=== PATIENT | male | born 1935 | race Caucasian/White ===

== ENCOUNTER 2018-09-09 12:28 | Emergency (ER) | payer MEDICARE, OTHER ==
[~2018-09-09] VITALS: Ht 177.8 cm; Wt 74.8 kg
[2018-09-09] MEDS ORDERED: LEVOFLOXACIN 500 MG TAB PO ONE (13:00)
[2018-09-09] MEDS ORDERED: CLINDAMYCIN 600 MG/4 ML VL IM ONE (13:00)
[2018-09-09 13:37] LABS: Basophils # (auto) 0 uL; Basophils % (auto) 0.3 % (0.0-2.0); Eosinophils # (auto) 0.1 uL; Eosinophils % (auto) 1.8 % (0.0-7.0); Hemoglobin 14.6 g/dL (13.5-17.5); Lymphocytes # (auto) 1.7 uL; Lymphocytes % (auto) 21.9 % (10.0-50.0); Mean Corpuscular Hemoglobin 32.9 pg (28.0-32.0); Mean Corpuscular Hgb Conc. 33.1 g/dL (32.0-36.0); Mean Corpuscular Volume 99.3 fL (80.0-100.0); Monocytes # (auto) 0.9 uL; Monocytes % (auto) 11.1 % (0.0-12.0); Neutrophils # (auto) 5.1 uL; Neutrophils % (auto) 64.9 % (37.0-80.0); Nucleated Red Blood Cells % 0.1 %; Platelet Count (auto) 230 10^3/uL (140-450); Red Blood Cells 4.43 10^6/uL (4.5-5.90); Red Cell Distribution Width 13.1 % (11.8-14.3); White Blood Cell 7.8 10^3/uL (4.4-10.8)
[2018-09-09 13:52] LABS: Albumin 3.7 g/dL (3.4-5.0); BUN/Creatinine Ratio 19.3; Calcium 8.3 mg/dL (8.5-10.1); Potassium 3.8 mmol/L (3.5-5.1)
[2018-09-09 14:01] LABS: Bilirubin, Total 0.7 mg/dL (0.2-1.0); Total Protein 7.8 g/dL (6.4-8.2)
[2018-09-09] MEDS ORDERED: CLINDAMYCIN 600MG IV 50 ML IV ONE (14:15)
[2018-09-09 15:25] VITALS: BP 138/68
== END 2018-09-09 15:28 | disposition home or self-care (01) ==
LOC: ER 12:32
DX: L03.116 Cellulitis of left lower limb (principal); I10 Essential (primary) hypertension; Z88.0 Allergy status to penicillin
CPT/HCPCS: 36415; 80053; 84484; 85025; 96365; 99284; J3490; 96375

== ENCOUNTER → 2019-11-21 | Outpatient (CLI) | payer MEDICARE, OTHER | END | disposition home or self-care (01) | LOC: Rad HDHVI 10:44 | PROVIDERS: ATTEND Internal Medicine Cardiovascular Disease | DX: R07.9 Chest pain, unspecified (principal); R00.2 Palpitations; R42 Dizziness and giddiness; R53.83 Other fatigue | CPT/HCPCS: 93306 ==

== ENCOUNTER → 2019-12-02 | Outpatient (CLI) | payer MEDICARE, OTHER ==
[~2019-12-02] VITALS: Ht 177.8 cm; Wt 74.8 kg
[2019-12-02 12:06] LABS: Urine Blood Negative /uL (Negative); Urine Specific Gravity 1.016 (1.001-1.035)
[2019-12-02 12:09] LABS: Basophils # (auto) 0 uL; Eosinophils # (auto) 0.1 uL; Eosinophils % (auto) 1.5 % (0.0-7.0); Hemoglobin 15.2 g/dL (13.5-17.5); Monocytes # (auto) 0.3 uL; Neutrophils # (auto) 2.7 uL; Nucleated Red Blood Cells % 0.2 %; Red Cell Distribution Width 13.2 % (11.8-14.3)
[2019-12-02 12:12] LABS: Basophils % (auto) 0.6 % (0.0-2.0); Hematocrit 44.6 % (41.0-53.0); Lymphocytes # (auto) 1.3 uL; Lymphocytes % (auto) 29.6 % (10.0-50.0); Mean Corpuscular Hemoglobin 34.5 pg (28.0-32.0); Mean Corpuscular Hgb Conc. 34.1 g/dL (32.0-36.0); Mean Corpuscular Volume 101.2 fL (80.0-100.0); Monocytes % (auto) 6.9 % (0.0-12.0); Neutrophils % (auto) 61.4 % (37.0-80.0); Platelet Count (auto) 146 10^3/uL (140-450); Red Blood Cells 4.41 10^6/uL (4.5-5.90); White Blood Cell 4.4 10^3/uL (4.4-10.8)
[2019-12-02 12:14] LABS: Potassium 3.7 mmol/L (3.5-5.1)
[2019-12-02 12:23] LABS: Albumin 3.3 g/dL (3.4-5.0); BUN/Creatinine Ratio 20.7; Bilirubin, Total 0.9 mg/dL (0.2-1.0); Calcium 7.5 mg/dL (8.5-10.1); Total Protein 6.3 g/dL (6.4-8.2)
[2019-12-02 12:25] LABS: Free T4 (Free Thyroxine) 0.99 ng/dL (0.89-1.76)
[2019-12-02 13:19] LABS: Prostate Specific Antigen 7.42 ng/mL (0.0-4.0)
== END | disposition home or self-care (01) ==
LOC: Rad HDHVI 09:40
PROVIDERS: ATTEND Internal Medicine Cardiovascular Disease
DX: C61 Malignant neoplasm of prostate (principal); E03.9 Hypothyroidism, unspecified; K90.9 Intestinal malabsorption, unspecified; E78.00 Pure hypercholesterolemia, unspecified; N39.0 Urinary tract infection, site not specified; R07.89 Other chest pain; D51.9 Vitamin B12 deficiency anemia, unspecified; Z79.899 Other long term (current) drug therapy
CPT/HCPCS: 36415; 78452; 80053; 80061; 81003; 82306; 82607; 83036; 84153; 84154; 84403; 84439; 84443; 85025; 93017; 96374; A9500

== ENCOUNTER → 2019-12-23 | Outpatient (CLI) | payer MEDICARE, BC ==
[2019-12-23 10:32] VITALS: BP 121/64
[2019-12-23 11:09] VITALS: BP 127/66
--- NOTE | 2019-12-23 11:09 | NUR ---
Pre-Op Discharge Summary: See e-MAR for any medications given for this visit. Pre-op orders received and carried out per MD of EKG, LABS and chest xrays. Patient given a copy of EKG with instructions to go to [facility] out patient for further follow up care.
[2019-12-23 12:14] LABS: Basophils # (auto) 0 uL; Hemoglobin 15.2 g/dL (13.5-17.5); Monocytes # (auto) 0.3 uL; Neutrophils # (auto) 2.2 uL; White Blood Cell 3.9 10^3/uL (4.4-10.8)
[2019-12-23 12:17] LABS: Basophils % (auto) 0.6 % (0.0-2.0); Eosinophils # (auto) 0 uL; Eosinophils % (auto) 1.3 % (0.0-7.0); Lymphocytes # (auto) 1.4 uL; Lymphocytes % (auto) 34.9 % (10.0-50.0); Mean Corpuscular Hemoglobin 34.2 pg (28.0-32.0); Mean Corpuscular Hgb Conc. 33.7 g/dL (32.0-36.0); Mean Corpuscular Volume 101.5 fL (80.0-100.0); Monocytes % (auto) 7.4 % (0.0-12.0); Neutrophils % (auto) 55.8 % (37.0-80.0); Nucleated Red Blood Cells % 0.1 %; Platelet Count (auto) 162 10^3/uL (140-450); Red Blood Cells 4.44 10^6/uL (4.5-5.90); Red Cell Distribution Width 13.1 % (11.8-14.3)
[2019-12-23 12:27] LABS: INR 1.13 (0.9-1.15); Partial Thromboplastin Time 24.1 sec (23.64-32.05)
[2019-12-23 12:58] LABS: Calcium 9.4 mg/dL (8.5-10.1); Potassium 3.9 mmol/L (3.5-5.1)
[2019-12-23 13:02] LABS: BUN/Creatinine Ratio 20.5
== END | disposition home or self-care (01) ==
LOC: Rad HDHVI 10:13
PROVIDERS: ATTEND Internal Medicine Cardiovascular Disease
DX: Z01.812 Encounter for preprocedural laboratory examination (principal); I25.2 Old myocardial infarction; R94.31 Abnormal electrocardiogram [ECG] [EKG]; I25.10 Atherosclerotic heart disease of native coronary artery without angina pectoris; R94.39 Abnormal result of other cardiovascular function study
CPT/HCPCS: 36415; 80048; 85025; 85610; 85730; 93005; G0463

== ENCOUNTER 2019-12-25 08:49 | Day surgery (SDC) | payer MEDICARE, OTHER ==
[~2019-12-25] VITALS: Ht 177.8 cm; Wt 74.8 kg
[2019-12-25] MEDS ORDERED: ANGIOMAX 250 MG VIAL IV ONE (11:16)
[2019-12-25] MEDS ORDERED: SODIUM CHL 0.9% 0 ML ONE (11:16)
[2019-12-25] MEDS ORDERED: LIDOCAINE 2%HCL (LOCAL ANESTH.) INJ 20ML MDV ONE (11:16)
[2019-12-25] MEDS ORDERED: IOHEXOL 350 MG/ML 100ML IJ ONE (11:16)
[2019-12-25] MEDS ORDERED: fentaNYL CITRATE 100 MCG/2 ML VL ONE (11:16)
[2019-12-25] MEDS ORDERED: MIDAZOLAM HCL 1MG/1ML-2 ML VIAL ONE (11:16)
[2019-12-25] MEDS ORDERED: VERAPAMIL 2.5MG/ML INJ 2ML VIAL IV ONE (11:45)
[2019-12-25] MEDS ORDERED: HYDROcodone-ACET 5/325MG TAB PO PRN (13:30)
[2019-12-25] MEDS ORDERED: ACETAMINOPHEN 500 MG TAB PO PRN (13:30)
[2019-12-25] MEDS ORDERED: ONDANSETRON HCL 4 MG/2 ML VIAL IV PRN (13:30)
== END 2019-12-25 17:10 | disposition home or self-care (01) ==
LOC: CATH 08:49
PROVIDERS: ATTEND Internal Medicine Cardiovascular Disease
DX: I25.10 Atherosclerotic heart disease of native coronary artery without angina pectoris (principal); I73.9 Peripheral vascular disease, unspecified; I70.0 Atherosclerosis of aorta; I10 Essential (primary) hypertension; I25.2 Old myocardial infarction; E78.5 Hyperlipidemia, unspecified; Z88.8 Allergy status to other drugs, medicaments and biological substances; Z86.79 Personal history of other diseases of the circulatory system
CPT/HCPCS: 93454; C1769; C1887; C1894; J1644; J2250; J3010; J7030; Q9967; 99152; 99153

== ENCOUNTER → 2020-09-17 | Outpatient (CLI) | payer MEDICARE, BC | END | disposition home or self-care (01) | LOC: Rad HDHVI 10:24 | PROVIDERS: ATTEND Internal Medicine Cardiovascular Disease | DX: M48.07 Spinal stenosis, lumbosacral region (principal); M48.05 Spinal stenosis, thoracolumbar region; M25.78 Osteophyte, vertebrae; I71.4 Abdominal aortic aneurysm, without rupture; M89.38 Hypertrophy of bone, other site; M54.5 Low back pain; Z88.0 Allergy status to penicillin | CPT/HCPCS: 72131 ==